=== PATIENT | male | born 1995 ===

== ENCOUNTER 2019-07-08 00:08 | Emergency (ER) | payer OTHER ==
[~2019-07-08] VITALS: Ht 185.4 cm; Wt 103.4 kg
[~2019-07-08 00:08] MED LIST: CIME400 PO
== END 2019-07-08 01:56 | disposition home or self-care (01) ==
LOC: ER 00:08
DX: S60.221A Contusion of right hand, initial encounter (principal); W01.198A Fall on same level from slipping, tripping and stumbling with subsequent striking against other object, initial encounter; Z88.0 Allergy status to penicillin; Z79.899 Other long term (current) drug therapy
CPT/HCPCS: 73130; 99283-25